=== PATIENT | female | born 1990 | race Caucasian/White ===

== ENCOUNTER 2016-06-16 05:36 | Inpatient (IN) | payer BC, MEDICAID ==
[2016-06-16] VITALS (37 sets, daily range): BP systolic 91–141; BP diastolic 46–72; PULSE 92–126; TEMP 97.6–99.8
[~2016-06-16] VITALS: Ht 165.1 cm; Wt 84.5 kg
[2016-06-16 06:36] LABS: BASO # 0.1 (0.0-0.2); BASO % 0.4 % (0.0-2.0); EOS % 0.2 % (0-4.0); GRAN # 10.5 (1.4-6.5); GRAN % 83.7 % (42.2-75.2); HEMATOCRIT 39.8 % (37.0-47.0); HEMOGLOBIN 13.8 g/dl (12.5-16.0); LYMPH # 0.9 (1.2-3.4); LYMPH % 7.4 % (20.0-51.0); MEAN CELL VOLUME 91 fl (80.0-100.0); MEAN CORPUSCULAR HEMOGLOBIN 31 pg (27.0-31.0); MEAN CORPUSCULAR HGB CONC 35 g/dl (33.0-37.0); MEAN PLATELET VOLUME 10.3 fl (7.4-10.4); MONO # 0.9 (0.1-0.6); PLATELET COUNT 206 K/mm3 (130-400); REDCELL DISTRIBUTION WIDTH-CV 16.5 % (11.5-14.5); WHITE BLOOD COUNT 12.5 K/mm3 (4.8-10.8)
[2016-06-16] MEDS ORDERED: FERROUS SULFATE65 MG PO (07:06)
[2016-06-16] MEDS ORDERED: PRENATAL1 TA7 PO (07:07)
[2016-06-17 00:30] VITALS: BP 114/79; PULSE 76; TEMP 97.7
[2016-06-17 06:58] LABS: MEAN CELL VOLUME 93 fl (80.0-100.0); MEAN CORPUSCULAR HGB CONC 34 g/dl (33.0-37.0); MEAN PLATELET VOLUME 10.5 fl (7.4-10.4); PLATELET COUNT 196 K/mm3 (130-400); RED BLOOD COUNT 3.49 M/mm3 (4.10-5.30); WHITE BLOOD COUNT 15.4 K/mm3 (4.8-10.8)
[2016-06-17 07:14] LABS: HEMATOCRIT 32.4 % (37.0-47.0); HEMOGLOBIN 10.9 g/dl (12.5-16.0); MEAN CORPUSCULAR HEMOGLOBIN 31 pg (27.0-31.0)
[2016-06-17 07:16] LABS: ADD PATHOLOGY DIFF REVIEW NO
[2016-06-17 08:18] LABS: BAND 12 % (0-10); BASOPHIL 1 % (0-2); MYELOCYTE 1 % (0-0); NEUTROPHILS 63 % (42.0-75.2); PLATELET ESTIMATE NORMAL (NORMAL); TOTAL CELLS COUNTED 100
[2016-06-17 08:21] LABS: ANISOCYTOSIS 2+; OVALOCYTES 1+; POIKILOCYTOSIS 2+; POLYCHROMASIA 1+; TEAR DROP CELLS 1+
[2016-06-17 08:22] LABS: DOHLE BODIES PRESENT; TOXIC GRANULATION PRESENT
[2016-06-17 09:07] VITALS: BP 97/63; PULSE 93; TEMP 97.8
[2016-06-17 16:46] VITALS: BP 101/60; PULSE 84; TEMP 97.8
[2016-06-17 20:10] VITALS: BP 104/72; PULSE 86; TEMP 98
[2016-06-18 07:37] VITALS: BP 103/69; PULSE 89; TEMP 97.5
[2016-06-18] MEDS ORDERED: IBU800 M1 PO (08:51)
[2016-06-18] MEDS ORDERED: PERCOCET 325 MG1 TA2 PO (08:51)
== END 2016-06-18 12:20 | disposition home or self-care (01) | DRG 775 ==
LOC: LDRO 05:36 → OB 07:16 → LDR 07:16 → OB 17:23
PROVIDERS: Obstetrics & Gynecology; Student in an Organized Health Care Education/Training Program
PROC: 10E0XZZ Delivery of Products of Conception, External Approach (ICD-10-PCS; principal; 2016-06-16)
PROC: 0DQR0ZZ Repair Anal Sphincter, Open Approach (ICD-10-PCS; 2016-06-16)
PROC: 0KQM0ZZ Repair Perineum Muscle, Open Approach (ICD-10-PCS; 2016-06-16)
DX: O70.21 Third degree perineal laceration during delivery, IIIa (principal); O75.89 Other specified complications of labor and delivery; Z3A.39 39 weeks gestation of pregnancy; Z37.0 Single live birth
CPT/HCPCS: J2210; J2400; J2590; J7120

== ENCOUNTER 2018-02-24 13:39 | Outpatient (CLI) | payer BC, MEDICAID ==
[~2018-02-24] VITALS: Ht 165.1 cm; Wt 85.0 kg
[2018-02-24 10:36] VITALS: BP 118/58; PULSE 97; TEMP 98
[~2018-02-24 13:39] MED LIST: FERROUS SULFATE65 MG PO; IBU800 M1 PO; PERCOCET 325 MG1 TA2 PO; PRENATAL1 TA7 PO
[2018-02-24 13:40] VITALS: BP 107/70; PULSE 90
== END 2018-02-24 13:40 | disposition home or self-care (01) ==
LOC: LDRO 13:39
DX: P03.0 Newborn affected by breech delivery and extraction (principal); Z3A.37 37 weeks gestation of pregnancy
CPT/HCPCS: J3105

== ENCOUNTER 2018-03-10 05:38 | Inpatient (IN) | payer BC, MEDICAID ==
[~2018-03-10] VITALS: Ht 165.1 cm; Wt 86.4 kg
[2018-03-10] VITALS (21 sets, daily range): BP systolic 84–115; BP diastolic 46–77; PULSE 69–113; TEMP 97.5–98.5
[2018-03-10 06:45] LABS: HEMOGLOBIN 12.1 g/dl (12.5-16.0); MEAN CELL VOLUME 93 fl (80.0-100.0); MEAN CORPUSCULAR HEMOGLOBIN 32 pg (27.0-31.0); MEAN CORPUSCULAR HGB CONC 34 g/dl (33.0-37.0); MEAN PLATELET VOLUME 10.3 fl (7.4-10.4); PLATELET COUNT 216 K/mm3 (130-400); REDCELL DISTRIBUTION WIDTH-CV 14.3 % (11.5-14.5)
[2018-03-10 06:59] LABS: HEMATOCRIT 35.5 % (37.0-47.0)
[2018-03-10 07:13] LABS: BAND 8 % (0-10); BASOPHIL 1 % (0-2); EOSINOPHIL 3 % (0-4); LYMPHOCYTE 25 % (20.0-51.0); NEUTROPHILS 58 % (42.0-75.2)
[2018-03-10 07:14] LABS: PLATELET ESTIMATE NORMAL (NORMAL)
[2018-03-11 00:15] VITALS: BP 99/55; PULSE 85; TEMP 98.1
[2018-03-11 05:23] VITALS: BP 107/66; PULSE 80; TEMP 97.9
[2018-03-11 08:15] VITALS: BP 105/72; PULSE 79; TEMP 97.4
[2018-03-11] MEDS ORDERED: IBU800 M1 PO (08:28)
[2018-03-11] MEDS ORDERED: PERCOCET 325 MG1 TA3 PO (08:28)
[2018-03-11 16:00] VITALS: BP 110/74; PULSE 82; TEMP 97.5
[2018-03-11 21:25] VITALS: BP 103/68; PULSE 69; TEMP 98.6
[2018-03-12 08:14] VITALS: BP 125/84; PULSE 84; TEMP 97.7
== END 2018-03-12 14:15 | disposition home or self-care (01) | DRG 788 ==
LOC: OB 05:38
PROVIDERS: Student in an Organized Health Care Education/Training Program
PROC: 10D00Z1 Extraction of Products of Conception, Low, Open Approach (ICD-10-PCS; principal; 2018-03-10)
DX: O32.1XX0 Maternal care for breech presentation, not applicable or unspecified (principal); Z3A.39 39 weeks gestation of pregnancy; Z37.0 Single live birth
CPT/HCPCS: J0690; J1885; J2270; J2370; J2405; J2590; J7120